=== PATIENT | male | born 1960 | race Caucasian/White ===

== ENCOUNTER 2018-06-01 08:39 | Outpatient (REF) | payer MEDICAID, SELFPAY ==
[2018-06-01 22:36] LABS: HCT 45.1 % (40.0-50.0); HGB 15.1 g/dL (13.5-17.5); Mean Corp. HGB Concentration 33.5 g/dL (32.0-36.0); Mean Corpuscular Hemoglobin 30.9 pg (27.0-33.0); Mean Corpuscular Volume 92.2 fL (80-95); Mean Platelet Volume 12.2 fL (8.0-11.0); Platelet Count 206 x1000/uL (130-400); RBC 4.89 m/cumm (4.50-6.00); RBC Distribution Width 13.4 % (11.8-14.1); White Blood Cell Count 6.07 k/cumm (4.4-10.8)
[2018-06-01 22:49] LABS: Anion Gap 9.2 mmol/L (3-11); BUN 11 mg/dL (7-18); CO2 26.8 mmol/L (21.0-32.0); CREATININE 0.82 mg/dL (0.70-1.30); Calcium 9.1 mg/dL (8.5-10.1); Chloride 104 mmol/L (98-107); Glucose 91 mg/dL (70-100); NT-proBNP 3520 pg/mL; Potassium 4.5 mmol/L (3.5-5.1); Sodium 140 mmol/L (136-145)
== END 2018-06-01 08:59 ==
LOC: NCHCN 08:39
PROVIDERS: PCP Family Medicine; Visit Provider Registered Nurse
DX: R06.09 Other forms of dyspnea (principal)
CPT/HCPCS: 80048; 85027; 83880

== ENCOUNTER 2018-06-16 10:13 | Outpatient (REF) | payer MEDICAID, SELFPAY ==
[2018-06-16 21:15] LABS: ALT 22 U/L (12-78); AST 13 U/L (15-37); Albumin 3.7 g/dL (3.4-5.0); Alkaline Phosphatase 69 U/L (46-116); Anion Gap 7.5 mmol/L (3-11); BUN 15 mg/dL (7-18); Bilirubin, Total 1.5 mg/dL (0.2-1.0); CO2 28.5 mmol/L (21.0-32.0); CREATININE 0.96 mg/dL (0.70-1.30); Calcium 9.3 mg/dL (8.5-10.1); Chloride 104 mmol/L (98-107); Glucose 91 mg/dL (70-100); Potassium 4.2 mmol/L (3.5-5.1); Sodium 140 mmol/L (136-145); Total Protein 6.9 g/dL (6.4-8.2)
== END 2018-06-16 10:33 ==
LOC: NCHCN 10:13
PROVIDERS: PCP Family Medicine; Visit Provider Registered Nurse
DX: R06.09 Other forms of dyspnea (principal)
CPT/HCPCS: 80053

== ENCOUNTER 2018-06-28 21:31 | Outpatient (REF) | payer MEDICAID, SELFPAY ==
[2018-06-30 12:13] LABS: HBs Antibody, Quant <3.1 mIU/mL; Hepatitis B Surface Ab Negative
[2018-06-30 12:32] LABS: Hepatitis C Ab w Rflx HCV PCR Negative (NEGAT)
== END 2018-06-28 21:51 ==
LOC: NCHCN 21:31
PROVIDERS: PCP Family Medicine; Visit Provider Family Medicine
DX: F10.20 Alcohol dependence, uncomplicated (principal); Z11.59 Encounter for screening for other viral diseases
CPT/HCPCS: 86706; 86803

== ENCOUNTER 2018-08-26 09:32 | Outpatient (REF) | payer MEDICAID, SELFPAY ==
[2018-08-26 21:29] LABS: Anion Gap 6.3 mmol/L (3-11); BUN 23 mg/dL (7-18); CO2 28.7 mmol/L (21.0-32.0); CREATININE 0.98 mg/dL (0.70-1.30); Calcium 9.3 mg/dL (8.5-10.1); Chloride 102 mmol/L (98-107); Glucose 111 mg/dL (70-100); Sodium 137 mmol/L (136-145)
== END 2018-08-26 09:52 ==
LOC: LBN 09:32
PROVIDERS: PCP Family Medicine; Visit Provider Internal Medicine Cardiovascular Disease
DX: I42.0 Dilated cardiomyopathy (principal)
CPT/HCPCS: 80048

== ENCOUNTER 2019-01-18 13:13 | Outpatient (REF) | payer MEDICAID, SELFPAY ==
[2019-01-18 22:01] LABS: Abs Immature Grans 0.02 k/cumm (0.0-0.09); Absolute Basophil Count 0.04 k/cumm (0.0-0.2); Absolute Eosinophil Count 0.43 k/cumm (0.0-0.7); Absolute Lymphocyte Count 2.04 k/cumm (1.2-3.4); Absolute Monocyte Count 0.54 k/cumm (0.11-0.7); Absolute Neutrophil Count 3.11 k/cumm (1.2-6.7); Basophils % 0.6; HCT 41.6 % (40.0-50.0); HGB 14.2 g/dL (13.5-17.5); Immature Grans % 0.3; Mean Corp. HGB Concentration 34.1 g/dL (32.0-36.0); Mean Corpuscular Hemoglobin 31.9 pg (27.0-33.0); Mean Corpuscular Volume 93.5 fL (80-95); Mean Platelet Volume 11.1 fL (8.0-11.0); Monocytes % 8.7; Neutrophils % 50.4; Platelet Count 185 x1000/uL (130-400); RBC 4.45 m/cumm (4.50-6.00); RBC Distribution Width 12.3 % (11.8-14.1); White Blood Cell Count 6.18 k/cumm (4.4-10.8)
[2019-01-18 22:13] LABS: ALT 23 U/L (12-78); AST 13 U/L (15-37); Albumin 3.8 g/dL (3.4-5.0); Alkaline Phosphatase 61 U/L (46-116); Anion Gap 8.7 mmol/L (3-11); BUN 17 mg/dL (7-18); Bilirubin, Total 0.8 mg/dL (0.2-1.0); CO2 28.3 mmol/L (21.0-32.0); CREATININE 0.95 mg/dL (0.70-1.30); Calcium 9.2 mg/dL (8.5-10.1); Chloride 100 mmol/L (98-107); Glucose 93 mg/dL (70-100); Lipase 132 U/L (73-393); Potassium 4.9 mmol/L (3.5-5.1); Sodium 137 mmol/L (136-145); Total Protein 7.1 g/dL (6.4-8.2)
== END 2019-01-18 13:33 ==
LOC: NCHCN 13:13
PROVIDERS: PCP Family Medicine; Visit Provider Registered Nurse
DX: R07.89 Other chest pain (principal); R31.0 Gross hematuria; I42.0 Dilated cardiomyopathy; F10.10 Alcohol abuse, uncomplicated
CPT/HCPCS: 80053; 83690; 85025

== ENCOUNTER 2019-06-27 10:35 | Outpatient (REF) | payer MEDICAID, SELFPAY ==
[2019-06-27 21:34] LABS: Calculated LDL 191 mg/dL; Cholesterol 275 mg/dL (<200); HDL Cholesterol 65 mg/dL (40-60); Triglyceride 96 mg/dL (<150)
== END 2019-06-27 10:55 ==
LOC: NCHCN 10:35
PROVIDERS: PCP Family Medicine; Visit Provider Family Medicine
DX: Z12.11 Encounter for screening for malignant neoplasm of colon (principal); Z13.220 Encounter for screening for lipoid disorders
CPT/HCPCS: 80061

== ENCOUNTER 2020-02-02 08:54 | Outpatient (REF) | payer MEDICAID, SELFPAY ==
[2020-02-02 22:56] LABS: ALT 32 U/L (16-63); Calculated LDL 87 mg/dL (<100); Cholesterol 169 mg/dL (<200); HDL Cholesterol 58 mg/dL (40-60); Triglyceride 124 mg/dL (<150)
== END 2020-02-02 09:14 ==
LOC: NCHCN 08:54
PROVIDERS: PCP Family Medicine; Visit Provider Family Medicine
DX: E78.5 Hyperlipidemia, unspecified (principal)
CPT/HCPCS: 80061; 84460

== ENCOUNTER 2021-09-26 09:35 | Outpatient (REF) | payer MEDICAID, SELFPAY ==
[2021-09-26 20:59] LABS: HCT 41.4 % (40.0-50.0); HGB 13.6 g/dL (13.5-17.5); MCH 30.4 pg (27.0-33.0); MCHC 32.9 % (32.0-36.0); MCV 92.6 fL (80-95); MPV 11.5 fL (8.0-11.0); Platelet Count 186 10^3/uL (130-400); RBC 4.47 10^6/uL (4.36-5.78); RDW 13.2 % (11.8-14.1); RDW-SD 44.7 fL; WBC 5.88 10^3/uL (4.4-10.8)
[2021-09-26 21:37] LABS: Vitamin B12 322 pg/mL (193-986)
== END 2021-09-26 09:36 | disposition home or self-care (01) ==
LOC: NCHCN 09:35
PROVIDERS: PCP Family Medicine; Visit Provider Family Medicine
DX: F10.10 Alcohol abuse, uncomplicated (principal)
CPT/HCPCS: 85027; 82607; 82746

== ENCOUNTER 2024-02-22 16:40 | Outpatient (REF) | payer MEDICAID, SELFPAY ==
[2024-02-22 21:25] LABS: HCT 41.3 % (40.0-50.0); HGB 14.1 g/dL (13.5-17.5); MCH 30.3 pg (27.0-33.0); MCHC 34.1 % (32.0-36.0); MCV 89 fL (80-95); MPV 11.3 fL (8.0-11.0); Platelet Count 157 10^3/uL (130-400); RBC 4.65 10^6/uL (4.36-5.78); RDW 12.3 % (11.8-14.1); RDW-SD 39.6 fL; WBC 7.09 10^3/uL (4.4-10.8)
[2024-02-22 21:48] LABS: ALT 34 U/L (16-63); AST 20 U/L (15-37); Albumin 3.6 g/dL (3.4-5.0); Alkaline Phosphatase 69 U/L (46-116); Anion Gap 7.3 mmol/L (3-11); BUN 10 mg/dL (7-18); Bilirubin, Total 1.08 mg/dL (0.2-1.0); CO2 26.7 mmol/L (21.0-32.0); CREATININE 0.8 mg/dL (0.70-1.30); Calcium 9.3 mg/dL (8.5-10.1); Calculated LDL 84 mg/dL (<100); Chloride 107 mmol/L (98-107); Cholesterol 155 mg/dL (<200); Estimated GFR 100.06 (mL/min/1.73m2); Glucose 100 mg/dL (74-106); HDL Cholesterol 58 mg/dL (40-60); Magnesium 1.9 mg/dL (1.8-2.4); Potassium 3.9 mmol/L (3.5-5.1); Sodium 141 mmol/L (136-145); Total Protein 6.7 g/dL (6.4-8.2); Triglyceride 69 mg/dL (<150)
== END 2024-02-22 16:41 | disposition home or self-care (01) ==
LOC: NCHCN 16:40
PROVIDERS: PCP Family Medicine; Visit Provider Nurse Practitioner Family
DX: I25.10 Atherosclerotic heart disease of native coronary artery without angina pectoris (principal); R42 Dizziness and giddiness; Z79.899 Other long term (current) drug therapy; Z51.81 Encounter for therapeutic drug level monitoring
CPT/HCPCS: 80053; 80061; 85027; 83735

== ENCOUNTER 2024-10-20 09:41 | Outpatient (REF) | payer MEDICAID, SELFPAY ==
[2024-10-20 16:15] LABS: ALT 33 U/L (16-63); AST 21 U/L (15-37); Albumin 3.8 g/dL (3.4-5.0); Alkaline Phosphatase 88 U/L (46-116); Anion Gap 6.5 mmol/L (3-11); BUN 16 mg/dL (7-18); Bilirubin, Total 1.1 mg/dL (0.2-1.0); CO2 29.5 mmol/L (21.0-32.0); CREATININE 0.9 mg/dL (0.70-1.30); Calcium 9.7 mg/dL (8.5-10.1); Calculated LDL 99 mg/dL (<100); Chloride 103 mmol/L (98-107); Cholesterol 177 mg/dL (<200); Estimated GFR 96.57 (mL/min/1.73m2); Glucose 127 mg/dL (74-106); HDL Cholesterol 55 mg/dL (>or=40); Sodium 139 mmol/L (136-145); Total Protein 7.3 g/dL (6.4-8.2); Triglyceride 118 mg/dL (<150)
== END 2024-10-20 09:42 | disposition home or self-care (01) ==
LOC: NCHCN 09:41
PROVIDERS: PCP Family Medicine; Visit Provider Family Medicine
DX: I50.9 Heart failure, unspecified (principal)
CPT/HCPCS: 80053; 80061